=== PATIENT | male | born 1975 | race Caucasian/White ===

== ENCOUNTER 2018-02-06 20:30 | Emergency (ER) | payer SELFPAY ==
[2018-02-06 20:52] VITALS: BP 125/75
--- NOTE | 2018-02-07 17:29 | ED ---
Complex/Multi-Sys Presentation - HPI Summary HPI Summary: Patient is a 42-year-old male presenting with law enforcement for a legal blood draw. Patient appears to be intoxicated per enforcement. Denies any other drug use or medications. Denies any SI or HI. Denies any depression or anxiety at this time. He states he has been feeling otherwise well. He is in no pain. Denies any fevers, sweats, chills. - History Of Current Complaint Chief Complaint: EDGeneral Time Seen by Provider: 02/06/18 20:31 Hx Obtained From: Patient Onset/Duration: Sudden Onset Timing: Constant - Allergies/Home Medications Allergies/Adverse Reactions: Allergies Allergy/AdvReac Type Severity Reaction Status Date / Time MS Bee Venom [Bee Venom] Allergy Unknown Verified 03/17/14 19:09 Reaction Details MS Poison [place] Extract/Poison Allergy Unknown Verified 03/17/14 19:09 [place]... Reaction [From Poison [place] Extract] Details PMH/Surg Hx/FS Hx/Imm Hx Previously Healthy: Yes - Immunization History Hx Pertussis Vaccination: No Immunizations Up to Date: Unable to Obtain/Confirm Infectious Disease History: No Infectious Disease History: Denies: Traveled Outside the [place] in Last 30 Days - Social History Occupation: Unemployed Lives: With Family Alcohol Use: Daily Alcohol Amount: today 2x25 oz beers Hx Substance Use: Yes Substance Use Type: Reports: Other Substance Use Comment - Amount & Last Used: 30 mg morphine po Hx Tobacco Use: Yes Smoking Status (MU): Former Smoker Review of Systems Negative: Fever, Chills, Skin Diaphoresis Negative: Palpitations, Chest Pain Negative: Shortness Of Breath, Cough Negative: Abdominal Pain, Vomiting, Diarrhea Negative: Rash, Bruising Negative: Headache All Other Systems Reviewed And Are Negative: Yes Physical Exam Triage Information Reviewed: Yes Vital Signs On Initial Exam: Initial Vitals Temp Pulse Resp BP Pulse Ox 99.5 F 88 15 125/75 99 02/06/18 20:50 02/06/18 20:50 02/06/18 20:50 02/06/18 20:50 02/06/18 20:50 Vital Signs Reviewed: Yes Appearance: Positive: Well-Appearing, Well-Nourished Skin: Positive: Warm, Skin Color Reflects Adequate Perfusion Head/Face: Positive: Normal Head/Face Inspection Eyes: Positive: Conjunctiva Inflammed Neck: Positive: Supple, No Lymphadenopathy Respiratory/Lung Sounds: Positive: Breath Sounds Present Cardiovascular: Positive: RRR Musculoskeletal: Positive: Strength/ROM Intact Neurological: Positive: Speech Normal Psychiatric: Positive: Affect/Mood Appropriate AVPU Assessment: Alert Diagnostics - Vital Signs Vital Signs Temp Pulse Resp BP Pulse Ox 02/06/18 20:50 99.5 F 88 15 125/75 99 - Laboratory Lab Statement: Any lab studies that have been ordered have been reviewed, and results considered in the medical decision making process. Complex Multi-Symp Course/Dx Course Of Treatment: Legal blood draw performed with law enforcement observing. Patient is discharged. - Diagnoses Provider Diagnoses: Routine lab draw Discharge - Sign-Out/Discharge Documenting (check all that apply): Patient Departure - Discharge Plan Condition: Stable Disposition: HOME Referrals: No Primary Care Phys,NOPCP [Primary Care Provider] - - Billing Disposition and Condition Condition: STABLE Disposition: Home
== END 2018-02-06 21:35 | disposition home or self-care (01) ==
LOC: ED 20:30
DX: Z04.8 Encounter for examination and observation for other specified reasons (principal)
CPT/HCPCS: 99282